=== PATIENT | male | born 1995 | race Caucasian/White ===

== ENCOUNTER 2024-12-31 00:09 | Emergency (ER) | payer MEDICAID, SELFPAY ==
[2024-12-31 00:10] VITALS: BMI 20.7
[2024-12-31 00:22] VITALS: BP 115/79; PULSE 94; RESP 20; TEMP 36.7; O2SAT 98
--- NOTE | 2024-12-31 00:28 | PD.EDRME ---
Rapid Medical Screening Exam RME Arrival date/time: 12/31/24 00:09 29M with history of homelessness and drug/alcohol use presents to ED wanting to talk to mental health. Chief Complaint: Psychiatric Symptoms Time Seen by Provider: 12/31/24 00:42 Vital signs: Vital Signs Temperature 98.1 F 12/31/24 00:22 Pulse Rate 94 12/31/24 00:22 Respiratory Rate 20 12/31/24 00:22 Blood Pressure 115/79 12/31/24 00:22 Pulse Oximetry (%) 98 12/31/24 00:22 Oxygen Delivery Method Room Air 12/31/24 00:22
--- NOTE | 2024-12-31 00:53 | PC.NURSE ---
PER SECURITY PT WALKED OFF PREMISES AND LEFT
--- NOTE | 2024-12-31 01:32 | PD.EDADDENDU ---
MD Attestation MD Attestation Please see the PA note. The patient left without being seen by me. I did not do history and physical exam of this patient.
== END 2024-12-31 01:00 | disposition left against medical advice (07) ==
PROVIDERS: Emergency Provider Emergency Medicine
DX: Z00.8 Encounter for other general examination (principal); Z59.00 Homelessness unspecified
CPT/HCPCS: 80307; 80320; 99281; G0480

== ENCOUNTER 2025-01-07 03:09 | Emergency (ER) | payer MEDICAID, SELFPAY ==
[2025-01-07 03:11] VITALS: BMI 21.9
--- NOTE | 2025-01-07 03:17 | PC.NURSE ---
CHARGE NURSE ERNESTO CHISHOLM NOTIFIED OF NEED FOR ROOM.
[2025-01-07 03:38] VITALS: BP 125/77; PULSE 133; RESP 17; TEMP 36.8; O2SAT 94
--- NOTE | 2025-01-07 03:55 | EKG_ITS ---
[facility] Test Date: 2025-01-07 Pat Name: ANGIE SMITH Department: Room: - Gender: Male [employer] Teacher: : 1995 Requested By: Darian Redding Order Number: [id number] Reading MD: Darian Redding Measurements Intervals [place] Rate: 129 P: 84 DC: 159 QRS: 98 QRSD: 93 T: 69 QT: 319 QTc: 468 Interpretive Statements SINUS TACHYCARDIA BORDERLINE RIGHT AXIS DEVIATION [QRS AXIS > 90] POSSIBLE RIGHT VENTRICULAR CONDUCTION DELAY [RSR (QR) IN V1/V2] POSSIBLE ANTERIOR MYOCARDIAL INFARCTION , OF INDETERMINATE AGE [30 ms Q WAVE IN V3/V4, OR R < 0.2 mV IN V4] No previous ECG available for comparison /[id number]/S0/[id number].pdf
--- NOTE | 2025-01-07 03:56 | EDRME_ITS ---
Rapid Medical Screening Exam RME Arrival date/time: 01/07/25 03:09 29M with history of homelessness and drug/alcohol use presents to ED wanting to talk to mental health because he ran out of his Zyprexa medication. Unknown dose. Patient told partridge farmer he has HI, but to this provider no SI or HI. But he does still want to talk to mental health. Chief Complaint: Psychiatric Symptoms Vital signs: Vital Signs Temperature 98.2 F 01/07/25 03:38 Pulse Rate 133 H 01/07/25 03:38 Respiratory Rate 17 01/07/25 03:38 Blood Pressure 125/77 01/07/25 03:38 Pulse Oximetry (%) 94 L 01/07/25 03:38 Oxygen Delivery Method Room Air 01/07/25 03:38
--- NOTE | 2025-01-07 05:16 | PC.NURSE ---
Pt walked out of ambulance bay, security notified. Security found Pt on premises, pt on a voluntary Mental evaluation stated he just wanted to leave. Clothes given to security to give to pt.
== END 2025-01-07 05:05 | disposition left against medical advice (07) ==
LOC: SERX 04:30
PROVIDERS: Emergency Provider Emergency Medicine
DX: Z02.89 Encounter for other administrative examinations (principal); Z59.00 Homelessness unspecified; R00.0 Tachycardia, unspecified; Z53.29 Procedure and treatment not carried out because of patient's decision for other reasons
CPT/HCPCS: 80048; 80307; 80320; 80329; 85025; 99281; G0480

== ENCOUNTER 2025-01-07 09:42 | Emergency (ER) | payer MEDICAID, SELFPAY ==
--- NOTE | 2025-01-07 09:59 | PC.NURSE ---
PATIENT LWFT BEFORE TRIAGE AFTER BEING DROPPED OFF BY EMS. PATIENT LEFT WITH ANOTHER PATIENT ALREADY BEING DISCHEARGED.
== END 2025-01-07 10:29 | disposition left against medical advice (07) ==
PROVIDERS: Emergency Provider Family Medicine
DX: Z53.21 Procedure and treatment not carried out due to patient leaving prior to being seen by health care provider (principal)

== ENCOUNTER 2025-02-15 00:03 | Emergency (ER) | payer MEDICAID, SELFPAY ==
[2025-02-15 00:05] VITALS: BMI 22.5
[2025-02-15 00:33] VITALS: BP 108/63; PULSE 121; RESP 18; TEMP 37.3; O2SAT 95
--- NOTE | 2025-02-15 00:42 | EDNOTE_ITS ---
ED Psych RME/HPI General Chief Complaint: Psychiatric Symptoms Stated Complaint: GOING [facility] Time Seen by Provider: 02/15/25 00:42 Arrival date/time: 02/15/25 00:03 RME / HPI RME / HPI Narrative: This section includes all my notes and documentations, including HPI, PE, and ED course. Juventino Sanchez MD HPI: 30yo male with a history of methamphetamine use presents to the ED for a check- up and help with being homeless. Admits to using methamphetamine. Denies any headache, neck pain, chest pain, abdominal pain, shortness of breath, extremity pain or any other associated symptoms. No other complaints reported. ROS: All negative except as documented in HPI. Physical Exam: General:? Alert and oriented.? No acute distress.?? Eyes:? Conjunctivae and lids clear.? EOMI.? PERRL. ENT:? No signs of head trauma. Neck:? Supple.? No tenderness. Heart:? RRR.? Lungs:? No respiratory distress.? Good air movement.? No rhonchi, wheezing, rales.?? Chest:? No tenderness. Abdomen:? Soft and nontender.? Normal bowel sounds.? No distension.? No rebound or guarding.?? Back:? No tenderness.?? Skin:? Warm and dry.?? Neuro:? Alert and oriented X 3.? Cranial Nerves II-XII grossly intact.? No peripheral motor deficits. Musculoskeletal:? All major joints and bones are not tender with no limited ROM. At this point, diagnoses include drug use. Recommended outpatient help to quit drugs. Based on my best medical judgment, made decision no further evaluation or treatment indicated at this time. Patient understands and agrees to the discharge instructions customized and printed, see below. Discharge Instructions from Dr. Sanchez: 1. As you requested, you are being discharged without diagnostic tests. 2. You don't meet the criteria for emergency fci in psychiatric unit against your will. Because you have no thoughts of hurting yourself or others. 3. See a private doctor later today 02/15/2025 for recheck and further care. Ask to help you stay healthy both physically and mentally. Helping you to quit all drugs. And help to receive all services available to you, including referral to see mental health specialists. 4. Seek immediate medical care (you can call 911 any time) with thoughts of hurt ing yourself or with any concerns. Juventino Sanchez MD Related Data Home Medications ?Medication ?Instructions ?Recorded ?Confirmed No Known Home Medications 10/04/2210/25 Allergies Allergy/AdvReac Type Severity Reaction Status Date / Time No Known Allergies Allergy Verified 02/15/25 00:04 Review of Systems Review of Systems Systems Reviewed: All systems reviewed, normal except as documented Past Medical History Past Medical History CARDIAC: Negative Congestive Heart Failure RESPIRATORY: Negative Chronic Obstructive Pulmonary Disease (COPD) GENITOURINARY: Positive Genitourinary Disorders; Negative Renal Disease ENDOCRINE: Negative Diabetes Mellitus Type 1 or Diabetes Mellitus Type 2 Social History SMOKING STATUS: Current some day smoker SUBSTANCE USE: methamphetamine ED Exam Narrative Physical exam: As noted in HPI. Course Quality Measures none Vital Signs Vital signs: Vital Signs Temperature 99.2 F 02/15/25 00:33 Pulse Rate 121 H 02/15/25 00:33 Respiratory Rate 18 02/15/25 00:33 Blood Pressure 108/63 02/15/25 00:33 Pulse Oximetry (%) 95 02/15/25 00:33 Oxygen Delivery Method Room Air 02/15/25 00:33 Psych MDM Narrative MDM Narrative:: Scribe Attestation: 02/15/25 - Linda Carlton am scribing for and in the presence of Dr. Sanchez. Patient data External records reviewed:: [facility] previous records (Per chart review, patient was seen here on 12/31/24 for encounter for other general examination.) Clinical information provided by:: patient Social determinants that could affect healthcare access:: substance use Patient has the following chronic illnesses:: none How is presenting disease/condition affected by chronic disease/condition?: no chronic disease Evaluation data The following diagnostics were reviewed and interpreted by me:: other (specify) (none) Lab and/or radiology exams considered but not ordered:: none Interpretation Summary: none Medications / Prescriptions Medications or Prescriptions considered but not ordered:: none Medication administrations:: none Consultations Consultation(s) initiated? (list below): No Diagnosis Psych Differential Diagnosis: acute psychosis, chronic schizophrenia, suicidal ideation, bipolar disorder, depression, drug-induced psychotic disorder and acute anxiety Most likely diagnosis given after review of the tests above:: Drug use Admission Indicated Admission indicated?: not indicated Explain why admission is indicated or not indicated:: With no condition needing emergent intervention, there was no indication for admission. Admission Request Was there a request for admission?: No Disposition Plan Disposition Plan: Discharge Discharge Attestation Discharge Attestation: The patient and all family members were given an opportunity to ask questions and understood the discharge instructions. Discharge instructions specifically effects, indications for sooner follow up or return to the emergency department, and the expected course of current diagnosis. Patient condition: Stable Discharge Plan Plan Patient Disposition: HOME (Self Care) Prescriptions/Referrals Prescriptions/Med Rec: No Action No Known Home Medications Problem List Clinical Impression: Drug use Patient/Caregiver Discharge Instructions Discharge Activity: activity as tolerated Education Materials: ED Drug Abuse Additional Instructions: Discharge Instructions from Dr. Sanchez: 1. As you requested, you are being discharged without diagnostic tests. 2. You don't meet the criteria for emergency fci in psychiatric unit agai nst your will.? Because you have no thoughts of hurting yourself or others.? 3. See a private doctor later today 02/15/2025 for recheck and further care. Ask to help you stay healthy both physically and mentally.? Helping you to quit all drugs. And help to receive all services available to you, including referral to see mental health specialists. 4. Seek immediate medical care (you can call 911 any time) with thoughts of hurting yourself or with any concerns. Print Language: Cymro Stand Alone Forms: [employer] Award Info., Patient Portal Info Letter
--- NOTE | 2025-02-15 00:52 | PC.LAC ---
PATIENT STATES I GOING, I'M DOING OKAY.
== END 2025-02-15 00:53 | disposition home or self-care (01) ==
LOC: SERX 00:54
PROVIDERS: Emergency Provider Emergency Medicine
DX: F19.90 Other psychoactive substance use, unspecified, uncomplicated (principal)
CPT/HCPCS: 99281

== ENCOUNTER 2025-08-18 09:51 | Emergency (ER) | payer MEDICAID, SELFPAY ==
[2025-08-18 10:04] VITALS: PULSE 80; RESP 16; O2SAT 99; BMI 22.5
[2025-08-18 10:13] VITALS: BP 118/79; PULSE 82; RESP 18; TEMP 37.2; O2SAT 99
--- NOTE | 2025-08-18 10:18 | PC.NURSE ---
PT IN ROOM 18 WALKING AROUND IN ROOM, RESPONDING TO INTERNAL STIMULI, HOWEVER, PT DOES FOLLOW COMMANDS, PT IS A [employer] 15, A&O X 4. ONE ON ONE SITTER IN PLACED, PT GIVEN FOOD AND DRINK.
[2025-08-18 10:41] LABS: Alcohol, Urine Negative (Negative); Amphetamine/Methamp Scrn,U Positive (Negative); Barbiturate Screen,Urine Negative (Negative); Benzodiazepines Screen,Urine Negative (Negative); Benzoylecgonine Screen, Ur Negative (Negative); Fentanyl Screen,Urine Negative (Negative); Opiate Screen,Urine Negative (Negative); THC Screen,Urine Positive (Negative)
--- NOTE | 2025-08-18 11:51 | PD.EDPSYCH ---
ED Psych RME/HPI General Chief Complaint: Psychiatric Symptoms Stated Complaint: MENTAL EVAL, HOLD Time Seen by Provider: 08/18/25 09:56 Arrival date/time: 08/18/25 09:51 RME / HPI RME / HPI Narrative: 30 year old male presents to the ED [facility] from [facility] on a 5150 hold. Per 5150 report written by clinician Lisa, the patient was due to be released from retirement today. However, were unable to safety plan due to bizarre behaviors. Per the report, the patient displayed significant emotional dysregulation, responding to internal stimuli, exhibiting facial gestures. Evidently the patient was unable to safety plan with staff and placed on a hold. In the ED, patient reports no complaints. Related Data Home Medications ?Medication ?Instructions ?Recorded ?Confirmed No Known Home Medications 10/04/22 10/04/22 Allergies Allergy/AdvReac Type Severity Reaction Status Date / Time No Known Allergies Allergy Verified 02/15/25 00:04 Review of Systems Review of Systems Systems Reviewed: All systems reviewed, normal except as documented Past Medical History Past Medical History CARDIAC: Negative Congestive Heart Failure RESPIRATORY: Negative Chronic Obstructive Pulmonary Disease (COPD) GENITOURINARY: Positive Genitourinary Disorders ENDOCRINE: Negative Diabetes Mellitus Type 1 or Diabetes Mellitus Type 2 Social History SMOKING STATUS: Current some day smoker SUBSTANCE USE: methamphetamine ED Exam Narrative Physical exam: GENERAL APPEARANCE:? alert and oriented x 4, well-developed, well-nourished, no acute distress HEENT: normocephalic, atraumatic NECK: supple LUNGS: no respiratory distress, normal effort HEART: Tachycardic, good peripheral perfusion ABDOMEN: non distended EXTREMITIES:? atraumatic NEUROLOGIC: awake; alert and oriented x4; cranial nerves II-XII grossly intact PSYCHIATRIC:? appropriate mood and affect SKIN: warm, dry, normal color; no rashes Course Quality Measures none Orders Category Date Time Status One-to-one observation NOW Care 08/18/25 10:14 Active Diet Regular Diet 08/18/25 Lunch Active Alcohol, Urine Stat Lab 08/18/25 10:15 Completed CBC Stat Lab 08/18/25 14:01 Completed CMP [Comprehensive Metabolic Panel] Stat Lab 08/18/25 14:01 Completed Drug Screen,Urine Stat Lab 08/18/25 10:15 Completed Vital Signs Vital signs: Vital Signs Temperature 98.9 F 08/18/25 10:13 Pulse Rate 82 08/18/25 10:13 Respiratory Rate 18 08/18/25 10:13 Blood Pressure 118/79 08/18/25 10:13 Pulse Oximetry (%) 99 08/18/25 10:13 Oxygen Delivery Method Room Air 08/18/25 10:13 Psych MDM Narrative MDM Narrative:: Selma Carlton am scribing for and in the presence of Dr. Hanks. Patient has been accepted by Dr. Pastrana at [facility]. EMS p/u 19:00. Patient data External records reviewed:: [facility] previous records and EMS form Clinical information provided by:: EMS Social determinants that could affect healthcare access:: substance use Patient has the following chronic illnesses:: Partial penectomy How is presenting disease/condition affected by chronic disease/condition?: uneffected by Evaluation data The following diagnostics were reviewed and interpreted by me:: lab results Lab and/or radiology exams considered but not ordered:: None Interpretation Summary: CBC and CMP are unremarkable Medications / Prescriptions Medications or Prescriptions considered but not ordered:: None Medication administrations:: None Consultations Consultation(s) initiated? (list below): No Diagnosis Psych Differential Diagnosis: acute psychosis, bipolar disorder and drug-induced psychotic disorder Most likely diagnosis given after review of the tests above:: Meth abuse Acute psychosis Admission Indicated Admission indicated?: not indicated Admission Request Was there a request for admission?: No Disposition Plan Disposition Plan: Transfer Discharge Plan Plan [facility] Disposition comment: [facility] Prescriptions/Referrals Prescriptions/Med Rec: No Action No Known Home Medications Referrals: No Primary/Family,Physician [Primary Care Provider] - In 1 week Problem List Clinical Impression: Methamphetamine abuse, Acute psychosis Patient/Caregiver Discharge Instructions Print Language: Ukrainian Stand Alone Forms: [employer] Award Info., Patient Portal Info Letter
--- NOTE | 2025-08-18 12:38 | PC.SS ---
Patient is medically cleared. However, the patient is unable to engage in assessment at the time, due to his instability.
--- NOTE | 2025-08-18 13:03 | PC.SS ---
Radha ALEXANDRA Attempted to meet face-to face with patient, however patient is unable to engage in assessment due to his inability to provide any information at this time. Radha ALEXANDRA discussed referring patient with Sharron ALEXANDRA and determined that at this time patient does meet criteria for a 5150 hold,pending Psychiatric placement. Jillian PASCUAL discussed case, with Dr. Gonzalez who is in agreement with plan. SS also updated patients nurse, Alexander.
--- NOTE | 2025-08-18 13:15 | PC.SS ---
Addendum entered by Jillian Arriola 08/18/25 15:37: SS follow p note ;SS set up transportation with Cheryle from [facility] ETA was set up for 1899. SS updated patient's nurse Alexander. Original Note: SS follow up note; KECIA was contacted by Danuta from [facility]. Danuta reported they are able to accept patient. Accepting Dr. is Dr. Nino. [facility]. will set up transportation with [facility]. Danuta would like patient to arrive at 1999. KECIA updated patient's nurse Alexander.
[2025-08-18 14:07] LABS: Basophils # (Auto) 0.1 Thou/mm3 (0.0-0.2); Basophils % (Auto) 1 % (0-2.5); Eosinophils # (Auto) 0.1 Thou/mm3 (0.0-0.5); Eosinophils % (Auto) 1 % (0-10); Hematocrit 39.5 % (41.0-53.0); Hemoglobin 13.3 g/dL (13.5-16.0); Immature Granulocytes Auto 0.02 Thou/mm3 (0.00-0.00); Lymphocytes # (Auto) 3.0 Thou/mm3 (1.0-4.8); Lymphocytes % (Auto) 29 % (10-50); Mean Corpuscular HGB Conc 33.7 g/dl (31.0-37.0); Mean Corpuscular Hemoglobin 29.6 pg (25.0-35.0); Mean Corpuscular Volume 88 fL (80-100); Monocytes # (Auto) 1.0 Thou/mm3 (0.0-0.8); Monocytes % (Auto) 9 % (0-12); Neutrophils # (Auto) 6.3 Thou/mm3 (1.8-7.7); Neutrophils % (Auto) 61 % (37-80); Nucleated Red Blood Cell # 0.00 Thou/mm3 (0.00-0.00); Nucleated Red Blood Cell % 0 /100 WBC (0); Platelet Count 249 Thou/mm3 (140-440); RDW Standard Deviation 42.5 fL (35.1-43.9); Red Blood Count 4.49 Miln/mm3 (4.50-5.90); White Blood Count 10.4 Thou/mm3 (3.8-10.6)
[2025-08-18 14:23] VITALS: BP 117/62; PULSE 81; RESP 19; TEMP 37; O2SAT 97
[2025-08-18 14:26] LABS: Alanine Aminotransferase 20 U/L (10-49); Albumin, Serum 4.0 gm/dL (3.5-5.0); Albumin/Globulin Ratio 1.7 (1.2-2.2); Alkaline Phosphatase 82 U/L (46-116); Anion Gap 9 (7-16); Aspartate Amino Transferase 27 U/L (0-34); BUN/Creatinine Ratio 21 Ratio (12-20); Bilirubin,Total 0.4 mg/dL (0.3-1.2); Blood Urea Nitrogen 17 mg/dL (9-23); Calcium 8.6 mg/dL (8.3-10.6); Calcium (Corrected) 8.6 mg/dL (8.5-10.1); Carbon Dioxide 25.0 mMol/L (20.0-31.0); Chloride 110 mMol/L (98-107); Creatinine (Component) 0.8 mg/dL (0.6-1.3); Estimated Creatinine Clearance 157.3 mL/min (>60); Globulin 2.4 gm/dL (2.3-3.5); Glucose 122 mg/dL (74-106); Osmolality,Calculated 289 (275-295); Potassium 4.2 mMol/L (3.4-5.1); Sodium 144 mMol/L (136-145); Total Protein 6.4 gm/dL (5.7-8.2); eGFR > 60 See Note
[2025-08-18 19:13] VITALS: BP 121/77; PULSE 82; RESP 18; TEMP 37; O2SAT 98
--- NOTE | 2025-08-18 19:21 | PC.NURSE ---
CALLED [facility] AND SPOKE WITH MONICA TO WHOM I GAVE REPORT TOO
== END 2025-08-18 19:23 ==
PROVIDERS: Emergency Provider Emergency Medicine
DX: Z04.6 Encounter for general psychiatric examination, requested by authority (principal); F15.10 Other stimulant abuse, uncomplicated; F23 Brief psychotic disorder; Z75.1 Person awaiting admission to adequate facility elsewhere
CPT/HCPCS: 36415; 80053; 80307; 80320; 85025; 96127; 99283; G0480